=== PATIENT | male | born 2005 | race Caucasian/White ===

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

== ENCOUNTER → 2025-02-27 | Outpatient (CLI) | payer OTHER | LOC: M RAD 16:23 | PROVIDERS: ATTEND Nurse Practitioner Adult Health | DX: M79.601 Pain in right arm (principal) ==